=== PATIENT | male | born 2000 | race American Indian/Alaskan Native ===

== ENCOUNTER 2019-08-11 07:18 | Emergency (ER) | payer OTHER ==
[2019-08-11 07:33] VITALS: BP 126/74
--- NOTE | 2019-08-11 08:22 | Emergency Department Report ---
[facility] Chief Complaint: Eye Problems Stated Complaint: EYES RED W/IRRITATION Time Seen by Provider: 08/11/19 08:05 Duration: 2 Days Side: Bilateral Severity: severe Symptoms: Yes Eye Redness, Yes Eye Pain, Yes Mucous Drainage, Yes Purulent Drainage, Yes Blurred Vision, No Eye Itching, No Preceding URI, No H/O Allergic Rhinitis, No Contact Lens Use, No Trauma, No Fever ED Review of Systems ROS: Stated complaint: EYES RED W/IRRITATION Other details as noted in HPI Comment: All other systems reviewed and negative ED Past Medical Hx - Past Medical History Previous Medical History?: No - Surgical History Past Surgical History?: No - Social History Smoking Status: Never Smoker - Medications Home Medications: Home Medications Medication Instructions Recorded Confirmed Last Taken Type Gentamicin 0.3% Ophth Soln 2 drops OP Q4H #1 bottle 08/11/19 Unknown Rx Naphazoline HCl/Pheniramine 2 drop OP TID #1 bottle 08/11/19 Unknown Rx [Naphcon-A Eye Drops] [facility] Exam - Exam General: Vital signs noted. No distress. Alert and acting appropriately. Eye Exam: Both Injection, Both Chemosis, Both EOMI, Both Mucous Discharge, Both Purulent Discharge, Neither Abnormal Pupil, Neither Eye Foreign Body, Neither Lid Foreign Body, Neither Fluorescein Uptake, Neither Fluorescein Uptake (slit lamp), Neither Cell/Flare (slit lamp), Neither Corneal Edema, Neither Photophobia HEENT: No Nasal Congestion, No Pharyngeal Erythema Remainder of HEENT: Normal Lungs: Yes Clear Lung Sounds, Yes Good Air Exchange, No Cough, No Nasal Flaring, No Retractions ED Course Vital Signs 08/11/19 07:32 Temperature 97.8 F Pulse Rate 50 L Respiratory 16 Rate Blood Pressure 126/74 [Right] O2 Sat by Pulse 100 Oximetry ED Medical Decision Making - Medical Decision Making Patient appears to have a moderate to severe bacterial conjunctivitis and will be started on Abx drops Critical care attestation.: If time is entered above; I have spent that time in minutes in the direct care of this critically ill patient, excluding procedure time. ED Disposition Clinical Impression: Acute bacterial conjunctivitis of both eyes Disposition: DC-01 TO HOME OR SELFCARE Is pt being admited?: No Does the pt Need Aspirin: No Condition: Stable Instructions: Conjunctivitis (ED) Referrals: EVERARDO RAYMOND MD [Staff Physician] - as needed Time of Disposition: 08:22
== END 2019-08-11 09:01 | disposition home or self-care (01) ==
LOC: ED 07:18
DX: H10.33 Unspecified acute conjunctivitis, bilateral (principal)
CPT/HCPCS: 99282